=== PATIENT | female | born 1990 | race Caucasian/White ===

== ENCOUNTER 2020-03-04 09:33 | Emergency (ER) | payer MEDICAID ==
[~2020-03-04] VITALS: Ht 167.6 cm; Wt 98.5 kg
--- NOTE | 2020-03-04 09:50 | NUR ---
PT AMBULATORY TO ROOM 15 W/ C/O R PUBIC AREA PAIN X 1 WEEK. PT STATES SHE HAS ALWAYS HAD PAIN SINCE HER C SECTION 8 YRS AGO BUT THAT OVER THE PAST WEEK IT HAS GOTTEN PROGRESSIVELY WORSE. PT ALSO STATES SHE HAS NOTED A MASS TO CORNER OF C SECTION SCAR THAT HAS INCREASED IN SIZE FROM A PEA TO A GOLF BALL OVER THE PAST FEW YEARS. PT RESTING ON MEKA. ELVIRA. FLORENTIN CALDWELL AT BEDSIDE.
[2020-03-04 10:35] VITALS: BP 125/84
--- NOTE | 2020-03-04 10:35 | NUR ---
PT RESTING ON GURNEY. NADN. STONE.
--- NOTE | 2020-03-04 10:37 | NUR ---
PT CHART REVIEWED AND PLACED FOR RECHECK.
--- NOTE | 2020-03-04 10:51 | NUR ---
ERP DR. CARLOS AT BEDSIDE FOR RE-EVAL.
== END 2020-03-04 11:19 | disposition home or self-care (01) ==
LOC: ED 10:31
DX: R10.31 Right lower quadrant pain (principal); F17.200 Nicotine dependence, unspecified, uncomplicated
CPT/HCPCS: 76857; 99284

== ENCOUNTER 2020-06-20 08:51 | Emergency (ER) | payer MEDICAID ==
[~2020-06-20] VITALS: Ht 167.6 cm; Wt 97.7 kg
[2020-06-20] MEDS ORDERED: SODIUM CHLORIDE 0.9% 1,000ML IVBOLUS ONE (09:30)
[2020-06-20] MEDS ORDERED: MORPHINE SULFATE 4 MG/ML, 1ML IVPush PRN (09:30)
[2020-06-20] MEDS ORDERED: ONDANSETRON 2MG/ML, 2ML IVPush ONE (09:30)
[2020-06-20] MEDS ORDERED: ONDANSETRON 2MG/ML, 2ML ONE (09:40)
[2020-06-20] MEDS ORDERED: MORPHINE SULFATE 4 MG/ML, 1ML ONE (09:40)
[2020-06-20 09:47] LABS: MICROSCOPIC AUTO
--- NOTE | 2020-06-20 09:48 | NUR ---
TASK RN: PT HAS SCAR TISSUE LLQ THAT SHE BELIEVES IS FROM . PT STATES SHE WAS TOLD THERE IS A "MASS" THERE A COUPLE MONTHS AGO. FOR 2 DAYS SHE HAS BEEN FEELING TEARING PAIN. MEDICATED NOTED ON NOV AND TO CT VIA MEKA
[2020-06-20 09:56] LABS: BASOPHILS # (AUTO) 0.04 x10^3/uL (0-0.1); BASOPHILS % (AUTO) 0 % (0-1); EOSINOPHILS # (AUTO) 0.07 x10^3/uL (0-0.4); EOSINOPHILS % (AUTO) 1 % (1-7); LYMPHOCYTES # (AUTO) 2.31 x10^3/uL (1-3.4); LYMPHOCYTES % (AUTO) 20 % (22-44); MD NO; MEAN CORPUSCULAR HEMOGLOBIN 29.5 pg (27.0-34.8); MEAN CORPUSCULAR HGB CONC 32.9 g/dL (32.4-35.8); MEAN CORPUSCULAR VOLUME 89.8 fL (80-100); MEAN PLATELET VOLUME 8.1 fL (7.4-10.4); MONOCYTES # (AUTO) 0.91 x10^3/uL (0.2-0.8); MONOCYTES % (AUTO) 8 % (2-9); NEUTROPHILS # (AUTO) 8.55 x10^3/uL (1.8-6.8); NEUTROPHILS % (AUTO) 72 % (42-75); PLATELET COUNT 383 x10^3/uL (130-400); RED BLOOD COUNT 4.92 x10^6/uL (3.82-5.3); RED CELL DISTRIBUTION WIDTH 13.5 % (9.6-15.2)
[2020-06-20 10:00] LABS: ALANINE AMINOTRANSFERASE 20 U/L (12-78); ALBUMIN 3.5 g/dL (3.4-5.0); ANION GAP 6 mmol/L (5-15); CALCIUM 9.2 mg/dL (8.5-10.1); CHLORIDE 110 mmol/L (98-107); CREATININE 0.87 mg/dL (0.55-1.02)
[2020-06-20 10:06] LABS: ALKALINE PHOSPHATASE 72 U/L (45-117); BILIRUBIN,TOTAL 0.3 mg/dL (0.2-1.0); TOTAL PROTEIN 7.4 g/dL (6.4-8.2)
--- NOTE | 2020-06-20 10:48 | NUR ---
CALL LIGHT ANSWERED, PT UP TO BR-AMBULATES WITH STEADY GAIT.
--- NOTE | 2020-06-20 10:50 | NUR ---
ALL RESULTS BACK,PT FOR RECHECK.
[2020-06-20 11:13] VITALS: BP 112/64
== END 2020-06-20 11:15 | disposition home or self-care (01) ==
LOC: ED 09:15
DX: N30.00 Acute cystitis without hematuria (principal); L91.0 Hypertrophic scar; G89.29 Other chronic pain; R10.31 Right lower quadrant pain
CPT/HCPCS: 36415; 76830; 80053; 81001; 83690; 84703; 85025; 87077; 87086; 96361; 96374; 96375; 99284; J2270; J2405; J7030; 87186

== ENCOUNTER 2020-06-23 08:47 | Emergency (ER) | payer MEDICAID ==
[~2020-06-23] VITALS: Ht 167.6 cm; Wt 98.7 kg
--- NOTE | 2020-06-23 09:51 | NUR ---
PT PRESENTS TO ED WITH CHRONIC BILATERAL LOWER ABD PAIN, WORSE TO RT LOWER QUAD. PT REPORTS EMESIS X 1 THIS AM BUT OTHERWISE DENIES N/V/D. PT IS A&O, RESPS EVEN AND UNLABORED. BP AND SPO2 MONITORS IN PLACE. CALL LIGHT IN REACH. PT SEEN AND EXAMINED BY [facility] LAW, PIV TO BE PLACED FOR CT AND MEDS. PT AGREEABLE TO POC.
[2020-06-23 10:00] LABS: MICROSCOPIC AUTO
[2020-06-23] MEDS ORDERED: SODIUM CHLORIDE FLUSH 10ML SYR IVF ONE (10:00)
[2020-06-23] MEDS ORDERED: MORPHINE SULFATE 4 MG/ML, 1ML ONE ×2 (10:30→11:24)
[2020-06-23] MEDS: MORPHINE SULFATE 4 MG/ML, 1ML IVPush PRN ×2 (10:36→11:26)
--- NOTE | 2020-06-23 10:49 | NUR ---
PIV attempted to arm x 1 without success, pt states she has very poor venous access d/t hx IV drug use. Pt consents to EJ PIV placement, [facility] notified. rt EJ placed on first attempt by senior mechanical development engineer student with this RN's direct supervision. EJ flushes easily with good blood return. labs drawn and walked to lab. pt medicated per emar for morphine for 8/10 abd pain, tolerated well. bp and spo2 monitors in place. [facility] notified labs pending. Per , CT scan may be performed without labs resulted as pt has documented normal kidney function [address] called to notify, per CT no scanner available at this time. CT to notify RN when CT room ready.
[2020-06-23 10:55] LABS: BASOPHILS # (AUTO) 0.07 x10^3/uL (0-0.1); BASOPHILS % (AUTO) 1 % (0-1); EOSINOPHILS # (AUTO) 0.04 x10^3/uL (0-0.4); EOSINOPHILS % (AUTO) 0 % (1-7); LYMPHOCYTES # (AUTO) 2.89 x10^3/uL (1-3.4); LYMPHOCYTES % (AUTO) 25 % (22-44); MD NO; MEAN CORPUSCULAR HEMOGLOBIN 29.4 pg (27.0-34.8); MEAN CORPUSCULAR HGB CONC 33.2 g/dL (32.4-35.8); MEAN PLATELET VOLUME 8.1 fL (7.4-10.4); MONOCYTES # (AUTO) 1.02 x10^3/uL (0.2-0.8); MONOCYTES % (AUTO) 9 % (2-9); NEUTROPHILS # (AUTO) 7.46 x10^3/uL (1.8-6.8); NEUTROPHILS % (AUTO) 65 % (42-75); PLATELET COUNT 362 x10^3/uL (130-400); RED BLOOD COUNT 4.54 x10^6/uL (3.82-5.3); RED CELL DISTRIBUTION WIDTH 13.4 % (9.6-15.2)
[2020-06-23 11:01] LABS: ALANINE AMINOTRANSFERASE 20 U/L (12-78); ALBUMIN 3.4 g/dL (3.4-5.0); ANION GAP 5 mmol/L (5-15); CALCIUM 8.2 mg/dL (8.5-10.1); CHLORIDE 111 mmol/L (98-107); CREATININE 0.75 mg/dL (0.55-1.02)
[2020-06-23 11:05] LABS: ALKALINE PHOSPHATASE 60 U/L (45-117); BILIRUBIN,TOTAL 0.3 mg/dL (0.2-1.0); TOTAL PROTEIN 7.2 g/dL (6.4-8.2)
[2020-06-23 11:18] VITALS: BP 124/73
--- NOTE | 2020-06-23 11:18 | NUR ---
PT TAKEN TO CT BY THIS RN, RN ON STANDBY DURING CT SCAN (POLICY IF USING EJ). PT TAKEN BACK FROM CT BY THIS RN, PT TOLERATED WELL. NO S/SX INFILTRATION WITH CT CONTRAST ADMIN. PT BACK FROM CT NOW, STATES PAIN REMAINS AT 8/10, "THE MORPHINE BARELY HELPED." PT A&O, RESPS EVEN AND UNLABORED, NO N/V, PT IN GOOD SPIRITS. AWAITING CT SCAN AN DISPO.
[2020-06-23] MEDS ORDERED: OMNIPAQUE 350 MG/ML, 100ML BOTTLE ONE (11:19)
--- NOTE | 2020-06-23 11:27 | NUR ---
PT REQUESTING SECOND DOSE MORPHINE, MEDICATED PER EMAR, TOLERATED WELL.
--- NOTE | 2020-06-23 11:47 | NUR ---
all results back, chart up for recheck, awaiting MD and dispo.
--- NOTE | 2020-06-23 12:04 | NUR ---
[facility] AT BEDSIDE TO EXPLAIN RESULTS AND POC.
--- NOTE | 2020-06-23 12:19 | NUR ---
PT REPORTS ABD PAIN LEVEL NOW 7/10, TOLERABLE. PT A&O, RESPS EVEN AND UNLABORED. AWAITING DC PAPERWORK FROM MD AT THIS TIME.
== END 2020-06-23 12:41 | disposition home or self-care (01) ==
LOC: ED 09:47
DX: G89.29 Other chronic pain (principal); R10.31 Right lower quadrant pain; R11.2 Nausea with vomiting, unspecified
CPT/HCPCS: 36415; 74177; 80053; 81001; 84703; 85025; 87086; 96374; 96376; 99285; J2270; Q9967

== ENCOUNTER 2020-07-11 08:53 | Emergency (ER) | payer MEDICAID ==
[~2020-07-11] VITALS: Ht 167.6 cm; Wt 99.5 kg
--- NOTE | 2020-07-11 09:27 | NUR ---
First contact with pt. Graciela CARPIO at bedside to chris pt. Pt reports "growth" on R side of scar x8 years. Pt reports increased pain with movement as well. Pt denies N/V/D or urinary difficulty. Pt reports has an appointment with OB 07/20/20 to be evaluated for this. Pt in hospital gown, resting in bed, NADN, watching TV. Continuous oxygen and BP Monitors applied, all safety measures observed.
--- NOTE | 2020-07-11 09:41 | NUR ---
Pt ambulatory to bathroom with steady gait to attempt to provide urine sample.
[2020-07-11] MEDS ORDERED: ONDANSETRON 2MG/ML, 2ML ONE (09:43)
[2020-07-11] MEDS ORDERED: MORPHINE SULFATE 4 MG/ML, 1ML ONE (09:43)
[2020-07-11] MEDS ORDERED: ONDANSETRON 2MG/ML, 2ML IVPush ONE (10:00)
[2020-07-11] MEDS ORDERED: MORPHINE SULFATE 4 MG/ML, 1ML IVPush PRN (10:00)
--- NOTE | 2020-07-11 10:05 | NUR ---
PIV inserted, pt medicated per NOV. Pt denies other needs at this time.
[2020-07-11 10:24] LABS: BASOPHILS % (AUTO) 1 % (0-1); EOSINOPHILS % (AUTO) 1 % (1-7); LYMPHOCYTES % (AUTO) 31 % (22-44); MEAN CORPUSCULAR HEMOGLOBIN 29.7 pg (27.0-34.8); MEAN CORPUSCULAR HGB CONC 33.8 g/dL (32.4-35.8); MEAN PLATELET VOLUME 9.5 fL (7.4-10.4); MONOCYTES % (AUTO) 8 % (2-9); NEUTROPHILS % (AUTO) 59 % (42-75); PLATELET COUNT 289 x10^3/uL (130-400); RED BLOOD COUNT 4.51 x10^6/uL (3.82-5.3); RED CELL DISTRIBUTION WIDTH 13.2 % (9.6-15.2)
[2020-07-11 10:28] LABS: ALBUMIN 3.3 g/dL (3.4-5.0); ANION GAP 3 mmol/L (5-15); CALCIUM 8.3 mg/dL (8.5-10.1); CHLORIDE 113 mmol/L (98-107); CREATININE 0.84 mg/dL (0.55-1.02)
[2020-07-11 10:30] LABS: MICROSCOPIC INDICATED
--- NOTE | 2020-07-11 10:32 | NUR ---
Pt reports mild improvement of pain after meds. Pt resting in bed watching TV, NADN, denies other needs.
[2020-07-11 10:58] LABS: MD SCAN
[2020-07-11 11:27] VITALS: BP 113/69
--- NOTE | 2020-07-11 11:27 | NUR ---
Graciela PA at bedside to discuss POC with pt. Pt resting in bed, NADN, watching TV, denies other needs.
== END 2020-07-11 11:41 | disposition home or self-care (01) ==
LOC: ED 10:16
DX: R19.03 Right lower quadrant abdominal swelling, mass and lump (principal); R10.31 Right lower quadrant pain
CPT/HCPCS: 36415; 80048; 81001; 82040; 84703; 85025; 87077; 87086; 96374; 96375; 99284; J2270; J2405; 87186

== ENCOUNTER 2020-07-20 12:29 | Day surgery (SDC) | payer MEDICAID ==
[~2020-07-20] VITALS: Ht 167.6 cm; Wt 95.4 kg
[2020-07-20 12:55] VITALS: BP 111/73
[2020-07-20 13:00] LABS: HCG UR SG 1.022 (1.003-1.030)
[2020-07-20] MEDS ORDERED: LACTATED RINGERS 1,000 ML IV SCH (13:00)
[2020-07-20] MEDS ORDERED: CHLORHEXIDINE 15 ML UDC MM ONE (13:00)
[2020-07-20] MEDS ORDERED: BUPIVACAINE/PF 0.5% ONE (14:13)
[2020-07-20] MEDS ORDERED: CEFAZOLIN 1,000 MG ONE ×2 (14:15)
[2020-07-20] MEDS ORDERED: FENTANYL PF 250 MCG/5ML ONE (14:15)
[2020-07-20] MEDS ORDERED: PROPOFOL 10 MG/ML, 20ML ONE (14:15)
[2020-07-20] MEDS ORDERED: MIDAZOLAM 1 MG/ML, 2ML ONE (14:15)
[2020-07-20] MEDS ORDERED: ACETAMINOPHEN 325 MG TABLET PO PRN (14:30)
[2020-07-20] MEDS ORDERED: MEPERIDINE/PF 25MG/0.5ML IVPush PRN (14:30)
[2020-07-20] MEDS ORDERED: PROMETHAZINE 25 MG/ML, 1ML IVPush PRN (14:30)
[2020-07-20] MEDS ORDERED: DEXAMETHASONE 4 MG/ML, 1ML ONE ×2 (14:33)
[2020-07-20] MEDS ORDERED: KETOROLAC 30 MG/1 ML ONE (14:34)
[2020-07-20] MEDS ORDERED: ONDANSETRON 2MG/ML, 2ML ONE (14:34)
[2020-07-20] MEDS ORDERED: BUPIVACAINE/EPI 0.5% 1:200K IM ONE (14:55)
[2020-07-20] MEDS ORDERED: OXYcodone 5 MG/5 ML ORAL.SOL UDC ONE ×2 (15:33→15:57)
[2020-07-20] MEDS ORDERED: FENTANYL PF 100 MCG/2ML ONE (15:33)
[2020-07-20] MEDS: FENTANYL PF 100 MCG/2ML IV PRN ×4 (15:36→16:04)
[2020-07-20] MEDS: OXYcodone 5 MG/5 ML ORAL.SOL UDC PO PRN ×2 (15:42→15:57)
== END 2020-07-20 17:15 | disposition home or self-care (01) ==
LOC: OUT 12:29
PROVIDERS: ATTEND Surgery
DX: R19.07 Generalized intra-abdominal and pelvic swelling, mass and lump (principal); N80.8 Other endometriosis; F17.210 Nicotine dependence, cigarettes, uncomplicated; F12.90 Cannabis use, unspecified, uncomplicated; Z72.89 Other problems related to lifestyle; Z20.828 Contact with and (suspected) exposure to other viral communicable diseases; Z98.890 Other specified postprocedural states; Z82.5 Family history of asthma and other chronic lower respiratory diseases
CPT/HCPCS: 22901; 81025; 87635; 88307; J0690; J1100; J1885; J2250; J2405; J2704; J3010; J7120